=== PATIENT | male | born 1985 ===

== ENCOUNTER 2017-03-22 13:58 | Emergency (ER) | payer MEDICAID, OTHER ==
[2017-03-22] MEDS ORDERED: Albuterol-Ipratrop 3 mg / 0.5 (3 ml) UD ONE ×2 (14:08→18:33)
[2017-03-22] MEDS ORDERED: Sodium Chloride 0.9% 500 ML IV ONE (14:50)
[2017-03-22] MEDS ORDERED: Albuterol-Ipratrop 20 mcg/actuation (4 g) INH STA (14:50)
--- NOTE | 2017-03-22 14:56 | C.PDOC ---
History Of Present Illness <Carole Carter - Last Filed: 03/22/17 18:20> <Chester Lantigua - Last Filed: 03/22/17 21:23> 31-year-old male, PMHx includes Asthma, presents to the emergency department for evaluation of nasal congestion, runny nose and productive cough gradually worsen for the past few weeks. Pt reports, his morning, patient developed chest tightness and wheezing, did not improved with use of inhaler, resulting in him coming to ED for evaluation. Otherwise, pt denies fever, chills, headache, drooling, CP, palpitation, abd. pain, nausea/vomiting, back pain or any other active complaints. AT present time, pt appears comfortable, not in resp. distress, No other complaints at this time. (Carole Carter) History Per: Patient History/Exam Limitations: no limitations Onset/Duration Of Symptoms: Days Current Symptoms Are (Timing): Still Present <Carole Carter - Last Filed: 03/22/17 18:20> <Chester Lantigua - Last Filed: 03/22/17 21:23> Time Seen by Provider: 03/22/17 14:43 Chief Complaint (Nursing): Shortness Of Breath Past Medical History Reviewed: Historical Data, Nursing Documentation, Vital Signs - Medical History PMH: Asthma Family History: States: No Known Family Hx - Social History Hx Tobacco Use: Yes Hx Alcohol Use: No Hx Substance Use: Yes - Immunization History Hx Tetanus Toxoid Vaccination: No Hx Influenza Vaccination: No Hx Pneumococcal Vaccination: No <Carole Carter - Last Filed: 03/22/17 18:20> Vital Signs: Last Vital Signs Temp 98.1 F 03/22/17 17:50 Pulse 86 03/22/17 20:17 Resp 16 03/22/17 20:17 BP 100/55 L 03/22/17 20:17 Pulse Ox 90 L 03/22/17 20:17 Review Of Systems Constitutional: Positive for: Weakness (generalized). Negative for: Fever, Chills ENT: Positive for: Nose Congestion Respiratory: Positive for: Cough. Negative for: Shortness of Breath, Sputum Gastrointestinal: Negative for: Nausea, Vomiting, Abdominal Pain Musculoskeletal: Negative for: Back Pain Neurological: Negative for: Weakness, Numbness, Headache, Dizziness <Carole Carter - Last Filed: 03/22/17 18:20> Physical Exam - Physical Exam Appears: Well, Non-toxic, No Acute Distress, Other (speaking in full sentences) Skin: Normal Color, Warm, Dry, No Rash Head: Normacephalic Eye(s): bilateral: PERRL Nose: No Flaring, Discharge (B/L congestion with scant clear rhinorrhea ) Oral Mucosa: Moist, No Drooling Lips: Normal Appearing Throat: No Erythema, No Drooling Neck: Normal ROM, Supple Cardiovascular: Rhythm Regular, No Murmur, No JVD Respiratory: No Accessory Muscle Use, No Rales, No Rhonchi, Wheezing (diffuse B/ L, expiratory) Gastrointestinal/Abdominal: Soft, No Tenderness, No Distention, No Guarding Extremity: Normal ROM, No Pedal Edema, No Deformity Neurological/Psych: Oriented x3, Normal Speech <Carole Carter - Last Filed: 03/22/17 18:20> ED Course And Treatment - Laboratory Results Result Diagrams: 03/22/17 16:12 03/22/17 16:12 O2 Sat by Pulse Oximetry: 100 (RA) Pulse Ox Interpretation: Normal - Radiology CXR: Interpreted by Me, Viewed By Me CXR Interpretation: Yes: No Acute Disease Progress Note: PT OBS IN ED FOR 2 hrs, admits min improvement. Pt sitting in bed, eating dinner Non-toxic. not in resp. distress. PulsEOx remained inadequate on RA 88-89% and 100% on O2 via NC. Lungs: mild improvement in exp wheezing B/L, BS equal B/L. CXR review, normal study. Blood work review, no acute abnormalities. UDrug screem review (+) opioid, cannab. Case discussed with Dr. Lantigua. re-evbethany, anushao <Carole Carter - Last Filed: 03/22/17 18:20> - Laboratory Results Result Diagrams: 03/22/17 16:12 03/22/17 16:12 Pulse Ox Interpretation: Normal - Radiology CXR: Interpreted by Me Progress Note: no wheezing . feels much better and wants to go home Reevaluation Time: 21:23 Reassessment Condition: Improved <Chester Lantigua - Last Filed: 03/22/17 21:23> Disposition - Disposition Disposition Time: 19:01 <Carole Carter - Last Filed: 03/22/17 18:20> Counseled Patient/Family Regarding: Studies Performed, Diagnosis, Need For Followup, Rx Given <Chester Lantigua - Last Filed: 03/22/17 21:23> - Disposition Referrals: [facility] [Outside] [facility] [Outside] Disposition: HOME/ ROUTINE Condition: FAIR Additional Instructions: Please return if symptoms recur Prescriptions: Albuterol HFA [Ventolin HFA 90 mcg/actuation (8 g)] 2 puff IH [id number] #1 puff Azithromycin [Zithromax Tri-Sidney] 500 mg PO DAILY #3 tablet Prednisone [Deltasone] 20 mg PO DAILY #5 tablet Instructions: Asthma (ED) Forms: [facility] (Yakut) - Clinical Impression Clinical Impression: Acute asthma exacerbation - Scribe Statement The provider has reviewed the documentation as recorded by the Scribe (Timothy Blood) <Carole Carter - Last Filed: 03/22/17 18:20> <Chester Lantigua - Last Filed: 03/22/17 21:23> - Scribe Statement All medical record entries made by the Scribe were at my direction and personally dictated by me. I have reviewed the chart and agree that the record accurately reflects my personal performance of the history, physical exam, medical decision making, and the department course for this patient. I have also personally directed, reviewed, and agree with the discharge instructions and disposition. (Carole Carter) Physician Patient Turnover Patient Signed Over To: Chester Lantigua Handoff Comments: medication, re-eval, dispo <Carole Carter - Last Filed: 03/22/17 18:20>
--- NOTE | 2017-03-22 16:09 | RAD ---
HISTORY: SOB COMPARISON: None available. TECHNIQUE: Chest PA and lateral FINDINGS: LUNGS: Apical pleural thickening. No focal consolidation. Please note that chest x-ray has limited sensitivity for the detection of pulmonary masses. PLEURA: No significant pleural effusion identified. No definite pneumothorax . CARDIOVASCULAR: The cardiomediastinal silhouette appears within normal limits of size. OSSEOUS STRUCTURES: No acute osseous abnormality identified. VISUALIZED UPPER ABDOMEN: Unremarkable. OTHER FINDINGS: None. IMPRESSION: No acute findings identified.
[2017-03-22 16:22] LABS: BASO # 0.1 K/uL (0.0-0.2); BASO % 0.4 % (0.0-2.0); EOS # 0.6 K/uL (0.0-0.7); EOS % 4.5 % (0.0-4.0); HEMOGLOBIN 13.7 g/dL (12.0-18.0); LYMPH % 21.5 % (20.0-40.0); MEAN CELL VOLUME 92.8 fL (80.0-94.0); MEAN CORPUSCULAR HEMOGLOBIN 31.5 pg (27.0-31.0); MEAN CORPUSCULAR HGB CONC 33.9 g/dL (33.0-37.0); MONO # 0.8 K/uL (0.0-0.8); MONO % 5.7 % (0.0-10.0); NEUT # 9.4 K/uL (1.8-7.0); NEUT % 67.9 % (50.0-75.0); RBC 4.34 Mil/uL (4.40-5.90); WHITE BLOOD COUNT 13.8 K/uL (4.8-10.8)
[2017-03-22 16:46] LABS: BLOOD UREA NITROGEN 12 mg/dL (9-20); GFR AFRICAN-AMERICAN > 60; GFR NON-AFRICAN AMERICAN > 60
[2017-03-22 16:52] LABS: URINE BACTERIA RARE (<OCC); URINE BILIRUBIN NEGATIVE (NEGATIVE); URINE BLOOD NEGATIVE (NEGATIVE); URINE CLARITY Hazy (Clear); URINE COLOR Yellow (YELLOW); URINE GLUCOSE (UA) NORMAL (Normal); URINE LEUKOCYTE ESTERASE NEG Leu/uL (Negative); URINE NITRATE NEGATIVE (NEGATIVE); URINE PROTEIN NEGATIVE (NEGATIVE); URINE UROBILINOGEN NORMAL mg/dL (0.2-1.0)
[2017-03-22 17:00] LABS: BARBITURATES, UR NEGATIVE (NEGATIVE); BENZODIAZEPINES, UR NEGATIVE (NEGATIVE); PHENCYCLIDINE, UR NEGATIVE (NEGATIVE)
[2017-03-22] MEDS ORDERED: Magnesium Sulfate 1 gm in D5W 1 GM/100 ML BAG IVPB ONE ×2 (17:42→19:43)
[2017-03-22] MEDS: Magnesium Sulfate 1 gm in D5W 1 GM/100 ML BAG IVPB SCH ×2 (17:49→19:43)
[2017-03-22 17:53] LABS: OPIATES, UR POSITIVE (NEGATIVE)
[2017-03-22] MEDS ORDERED: Albuterol-Ipratrop 3 mg / 0.5 (3 ml) UD IH STA (17:53)
[2017-03-22 20:20] VITALS: RESP 16; O2SAT 90
[2017-03-22 21:39] VITALS: BP 129/75; PULSE 99; TEMP 98.4
== END 2017-03-22 21:43 | disposition home or self-care (01) ==
LOC: C.ER 13:58
DX: J45.901 Unspecified asthma with (acute) exacerbation (principal); Z87.891 Personal history of nicotine dependence
CPT/HCPCS: 71046; 80048; 81001; 85025; 87804; 96365; 96366; 96375; 99285; G0480; J2930; J3475; J7040

== ENCOUNTER 2017-08-07 21:56 | Inpatient (IN) | payer MEDICAID, OTHER ==
[2017-08-07] MEDS ORDERED: Albuterol-Ipratrop 3 mg / 0.5 (3 ml) UD ONE ×2 (22:15→23:19)
[2017-08-07] MEDS ORDERED: Albuterol 0.083% Inhal Sol (2.5 mg/3 mL) UD ONE (22:17)
[2017-08-07] MEDS ORDERED: Albuterol-Ipratrop 3 mg / 0.5 (3 ml) UD INH STA ×2 (22:22→23:17)
[2017-08-07] MEDS ORDERED: Albuterol 0.083% Inhal Sol (2.5 mg/3 mL) UD INH STA ×2 (22:22→22:39)
[2017-08-07] MEDS ORDERED: MethylPREDNISolone 40 mg Vial IVP STA (22:41)
--- NOTE | 2017-08-07 22:49 | C.PDOC ---
History Of Present Illness 32 y/o male with longstanding PMHx of asthma since childhood, presents to the ED with worsening SOB, chest tightness, and wheezing that began today. Patient admits he recently relapsed on heroin use and has been sniffing intranasally. Patient has prior hx of intubation for asthma. He is requesting to be evaluated for detox after medical treatment is provided. Otherwise no palpitations, recent fever, allergen exposure, cough, dizziness, weakness, or other associated symptoms. Time Seen by Provider: 08/07/17 22:30 Chief Complaint (Nursing): Respiratory Distress History Per: Patient History/Exam Limitations: no limitations Onset/Duration Of Symptoms: Hrs Current Symptoms Are (Timing): Still Present Initiating Event: Other (Heroin relapse) Past Medical History Reviewed: Historical Data, Nursing Documentation, Vital Signs Vital Signs: Last Vital Signs Temp 98.3 F 08/07/17 22:12 Pulse 118 H 08/08/17 01:41 Resp 20 08/08/17 03:01 BP 134/76 08/08/17 03:01 Pulse Ox 98 08/08/17 03:07 - Medical History PMH: Asthma Other PMH: Substance abuse Family History: States: No Known Family Hx - Social History Hx Tobacco Use: Yes Hx Alcohol Use: No Hx Substance Use: Yes - Immunization History Hx Tetanus Toxoid Vaccination: No Hx Influenza Vaccination: No Hx Pneumococcal Vaccination: No Review Of Systems Constitutional: Negative for: Fever, Chills, Weakness ENT: Negative for: Nose Congestion Cardiovascular: Positive for: Chest Pain (tightness). Negative for: Palpitations Respiratory: Positive for: Shortness of Breath, Wheezing. Negative for: Cough Neurological: Negative for: Dizziness Physical Exam - Physical Exam Appears: Non-toxic, In Acute Distress (mild respiratory distress) Skin: Normal Color, Warm, Dry Head: Atraumatic, Normacephalic Eye(s): bilateral: Normal Inspection, PERRL, EOMI Oral Mucosa: Moist Neck: Normal ROM, Supple Chest: Symmetrical, No Deformity, No Tenderness Cardiovascular: Rhythm Regular (with accelerated rate, HR is at 112 bpm), No Friction Rub, No Murmur, No Other (thrill) Respiratory: Accessory Muscle Use, No Rhonchi, Wheezing (diffuse bilateral wheezing), Other (prolonged expiratory phases, with decreased air movement) Gastrointestinal/Abdominal: Soft, No Tenderness, No Distention Extremity: Bilateral: Atraumatic (with no manifestation of IV drug abuse), No Pedal Edema, Normal Color And Temperature (with no edema, cluubing, or cyanosis) , Normal ROM Pulses: Left Radial: Normal, Right Radial: Normal Neurological/Psych: Oriented x3, Normal Speech (speaking in partial sentences), Normal Cranial Nerves, Other (No focal deficits) ED Course And Treatment - Laboratory Results Result Diagrams: 08/08/17 00:33 08/08/17 00:33 O2 Sat by Pulse Oximetry: 98 (RA) Pulse Ox Interpretation: Normal - Radiology CXR: Interpreted by Me, Viewed By Me CXR Interpretation: Yes: No Acute Disease Medical Decision Making Medical Decision Making: Initial Impression: Acute exacerbation of asthma, perhaps triggered by relapsed heroin use Plan: --Urine drug screen --Alcohol serum --CMP --CBC --UA --Chest X-Ray --Albuterol neb x2 --Duoneb x2 --Solu-Medrol 125 mg IVP --Peak Flow pre/post tx --Crisis team will evaluate Progress/Updates: CXR shows no active pulmonary disease. Labs reviewed, WBC elevated 12k. 3:02am After 4 nebs, patient has persistent wheezing. PulseOx is 92% on 4L of O2. Given patients prior history of intubations, will plan to admit the patient for medicine and have him evaluated for detox at a later time. 3:33am Case discussed with Dr. Galarza, who accepts the patient for admission. Disposition Counseled Patient/Family Regarding: Studies Performed, Diagnosis - Disposition Disposition: HOSPITALIZED Disposition Time: 03:33 Condition: IMPROVED Forms: [facility] (Tajik) - POA Present On Arrival: None - Clinical Impression Clinical Impression: Acute asthma exacerbation - Scribe Statement The provider has reviewed the documentation as recorded by the Scribe (Michaelle Marcos) Provider Attestation: All medical record entries made by the Scribe were at my direction and personally dictated by me. I have reviewed the chart and agree that the record accurately reflects my personal performance of the history, physical exam, medical decision making, and the department course for this patient. I have also personally directed, reviewed, and agree with the discharge instructions and disposition.
[2017-08-08 00:39] LABS: BASO # 0.1 K/uL (0.0-0.2); BASO % 0.5 % (0.0-2.0); EOS # 0.5 K/uL (0.0-0.7); EOS % 3.8 % (0.0-4.0); HEMOGLOBIN 15.3 g/dL (12.0-18.0); LYMPH # 2.6 K/uL (1.0-4.3); LYMPH % 20.5 % (20.0-40.0); MEAN CELL VOLUME 93.6 fL (80.0-94.0); MEAN CORPUSCULAR HGB CONC 33.2 g/dL (33.0-37.0); MONO # 0.9 K/uL (0.0-0.8); MONO % 6.8 % (0.0-10.0); NEUT # 8.6 K/uL (1.8-7.0); NEUT % 68.4 % (50.0-75.0); NRBC % 0.1 % (0.0-2.0); RBC 4.93 Mil/uL (4.40-5.90); RED CELL DISTRIBUTION WIDTH 13.1 % (11.5-14.5); WHITE BLOOD COUNT 12.6 K/uL (4.8-10.8)
[2017-08-08 00:50] LABS: ALB/GLOB RATIO 1.6 (1.0-2.1); ALBUMIN 4.7 g/dL (3.5-5.0); ALT/SGPT 30 U/L (21-72); AST/SGOT 22 U/L (17-59); BLOOD UREA NITROGEN 17 mg/dL (9-20); CALCIUM 9.6 mg/dl (8.6-10.4); GFR AFRICAN-AMERICAN > 60; GFR NON-AFRICAN AMERICAN > 60
[2017-08-08] MEDS ORDERED: Albuterol-Ipratrop 3 mg / 0.5 (3 ml) UD ONE (02:52)
[2017-08-08] MEDS ORDERED: Albuterol 0.083% Inhal Sol (2.5 mg/3 mL) UD INH STA (02:54)
[2017-08-08 03:17] LABS: ABG ALLEN TEST POS; ARTERIAL BLOOD GAS HEMOGLOBIN 14.1 g/dL (11.7-17.4); ARTERIAL BLOOD GAS O2 SAT 95.1 % (95-98); ARTERIAL BLOOD GAS PCO2 54 mm/Hg (35-45); ARTERIAL BLOOD GAS PH 7.35 (7.35-7.45); ARTERIAL BLOOD GAS PO2 67 mm/Hg (80-100); ARTERIAL BLOOD GAS TCO2 31.5 mmol/L (22-28)
[2017-08-08 03:47] LABS: BARBITURATES, UR NEGATIVE (NEGATIVE); BENZODIAZEPINES, UR NEGATIVE (NEGATIVE); PHENCYCLIDINE, UR NEGATIVE (NEGATIVE)
[2017-08-08 03:49] LABS: OPIATES, UR POSITIVE (NEGATIVE)
[2017-08-08] MEDS: MethylPREDNISolone 40 mg Vial IVP SCH ×4 (03:59→22:26)
[2017-08-08] MEDS: Albuterol-Ipratrop 3 mg / 0.5 (3 ml) UD INH SCH ×5 (05:15→20:38)
[2017-08-08] MEDS: Enoxaparin 40 mg Syringe SC SCH (09:25)
[2017-08-08] MEDS ORDERED: Fluticasone-Salmeterol 250-50mcg Diskus INH SCH (10:00)
--- NOTE | 2017-08-08 11:38 | RAD ---
HISTORY: Sepsis Patient COMPARISON: 03/22/2017. FINDINGS: LUNGS: The lungs are hyperinflated and there is peribronchial thickening with chronic changes in both lungs. No focal consolidation. PLEURA: No significant pleural effusion identified, no pneumothorax apparent. CARDIOVASCULAR: Normal. OSSEOUS STRUCTURES: No significant abnormalities. VISUALIZED UPPER ABDOMEN: Normal. OTHER FINDINGS: None. IMPRESSION: No active pulmonary disease. COPD.
--- NOTE | 2017-08-08 12:04 | PCM.PSYCH ---
Initial Psychiatric Evaluation - Initial Psychiatric Evaluation Type of Admission: Voluntary Legal Status: Capacity Chief Complaint (in patient's own words): "I use heroin" History of Present Illness and Precipitating Events: The patient is seen, chart reviewed and case discussed. Consultation was requested for his substance use. This is a 32-year-old male, single with 2 children in [place]. He works at [employer] part-time and lives with his aunt in [place]. The patient has relapsed on heroin about 2 weeks ago, but he first started when he was 17 years old. He uses 4-6 backs right now intranasally. He also uses marijuana. He had one detox in [place] and he came to [facility] 3 months ago. He denies alcohol and other drug use He is slightly depressed but denies suicidal ideation and no hallucinations or delusions elicited. Past psych history: He was diagnosed with depression and anxiety and later on bipolar disorder. However he doesn't report any manic symptoms. He used to take Depakote in the past Family psych history: Denies Medical history: Asthma, alopecia Current Medications: Active Medications Generic Name Dose Route Start Last Admin Trade Name Freq PRN Reason Stop Dose Admin Albuterol/Ipratropium 3 ml 08/08/17 04:00 08/08/17 07:37 Duoneb 3 Mg/0.5 Mg (3 Ml) Ud INH 3 ml RQ4 LOAN Administration Enoxaparin Sodium 40 mg 08/08/17 10:00 08/08/17 09:25 Lovenox SC Not Given DAILY LOAN Famotidine 20 mg 08/08/17 10:00 08/08/17 09:25 Pepcid PO 20 mg DAILY LOAN Administration Ceftriaxone Sodium 1 gm/ 100 mls @ 100 mls/hr 08/08/17 10:00 08/08/17 10:35 Sodium Chloride IVPB 100 mls/hr DAILY LOAN Administration Protocol Methylprednisolone 60 mg 08/08/17 03:45 08/08/17 09:26 Solu-Medrol IVP 60 mg Q6H LOAN Administration Montelukast Sodium 4 mg 08/08/17 10:00 08/08/17 09:45 Singulair PO 4 mg DAILY LOAN Administration Pneumococcal Polyvalent Vaccine 0.5 ml 08/10/17 10:00 Pneumovax 23 Vaccine IM 08/10/17 10:01 .ONCE ONE Fluticasone/Salmeterol 1 puff 08/09/17 10:00 Advair Diskus 250/50 INH DAILY LOAN Tiotropium [place] 18 mcg 08/08/17 11:00 Spiriva INH RQ24 LOAN Past Psychiatric History - Past Psychiatric History Previous Treatment History: Inpatient Pertinent Medical Hx (Current Medical&Sleep Prob, Allergies): Allergies Allergy/AdvReac Type Severity Reaction Status Date / Time No Known Allergies Allergy Verified 08/07/17 22:16 Albuterol HFA [Ventolin HFA 90 mcg/actuation (8 g)] 2 puff IH [id number] 03/22/17 Fluticasone/Salmeterol [Advair 250-50 Diskus] 1 puff IH DAILY 08/07/17 Montelukast Sodium [Singulair] 4 mg PO DAILY 08/07/17 Tiotropium [place] Inhaler [Spiriva Inhalation Handihaler Device] 1 inhaler INH DAILY 08/07/17 Review of Systems - Neurological Neurological: UNREMARKABLE - Psychiatric Psychiatric: Abnormal Sleep Pattern, Anxiety. absent: Hallucinations, Homicidal Ideation, Hopelessness, Suicidal Ideation Mental Status Examination - Personal Presentation Personal Presentation: Looks stated age - Affect Affect: Constricted - Motor Activity Motor Activity: Calm - Reliability in Providing Information Reliability in Providing Information: Good - Speech Speech: Organized - Mood Mood: Depressed (mild), Anxious - Formal Thought Process Formal Thought Process: No Impairment - Cognitive Functions Orientation: Person, Place, Situation, Time Sensorium: Alert Attention/Concentration: Attentive Estimate of Intelligence: Average Judgement: Intact, as evidence by: Insight regarding need for hospitalization Memory: Recent intact, as evidence by: Ability to recall events of the day, Remote intact, as evidenced by: Ability to recall historical events - Risk Risk: Withdrawal, Diminished functioning - Strength & Assets Inventory Strength & Assets Inventory: Family support, Cooperative - Limitations Limitations: Other DSM 5 DX - DSM 5 DSM 5 Diagnosis: Opioid withdrawal Opioid use disorder, severe Cannabis use disorder, moderate Depressive disorder, unspecified Rule out bipolar disorder, by history - Recommended/Plan of Treatment Treatment Recommendations and Plan of Treatment: Taper with methadone Gabapentin for augmentation if needed Seroquel for insomnia, mood symptoms As needed medications All risks, benefits and alternatives of the meds discussed, and the pt agreed and understood. Supportive therapy and psychoeducation NM for abstinence Encourage MAT Refer to rehab or IOP, and self-help groups 34 min
--- NOTE | 2017-08-08 12:15 | CP.PCM.HP ---
History of Present Illness - History of Present Illness History of Present Illness: COMPREHENSIVE HISTORY & PHYSICAL EXAM Patient admitted from [facility] emergency room with acute wheezing HPI Patient has a history of asthma with exacerbation in the past requiring intubation. Patient was sniffing heroine and subsequently got short of breath with increased wheezing patient was treated in the ER with multiple bronchodilators and steroid with not much improvement. Patient is now admitted for further treatment and detox PAST HIST. PERSONAL HIST: Smoking. Yes Alcohol. N Allergy N Travel_ - . FAMILY HIST : ROS : Constitutional: Negative for weight change, chills, night sweats, fatigue and usage of assist device. Eyes: Negative for redness, swelling, itching, discharge, vision changes, blurry vision, double vision, glaucoma, cataracts, Ears: Negative for hearing loss, ringing, , tinnitus, vertigo Nose: Negative for rhinorrhea, stuffiness, sniffing, itching, postnasal drip, discoloration, nasal congestion and epistaxis. Throat: Negative for throat clearing, sore throat, hoarseness, difficulty swallowing and difficulty speaking. Respiratory: Coughing with white expectoration wheezing Cardiovascular: Negative for chest pain, palpitations, orthopnea, PND, Edema of legs, leg cramps, angina, claudication, , irregular heartbeat, Neurology: Negative for irritability, muscle weakness, numbness and tingling, seizures, tremors, migraines, slurred speech, syncope, memory loss, mood changes , recurrent headaches Gastrointestinal: Negative for difficulty swallowing, diarrhea, constipation, black stools, rectal bleeding, nausea, flatulence, reflux, poor appetite, changes in bowel habits, abdominal pain Genitourinary: Negative for frequent urination, hematuria, discharge, incontinence, urinary retention, frequent UTI, Psychiatric: Negative for depression, anxiety/panic, suicidal tendencies, Musculoskeletal: Negative for swollen joints, back pain, , neck pain, morning stiffness of joints, . Skin: Negative for rash, ulcers, itching, dry skin and pigmented lesions. P/E: Constitutional: Appears stated age and in no apparent distress. Head: Normocephalic. Ears: External ear canals patent without inflammation. Tympanic membranes intact with normal light reflex and landmark. Eyes: Pupils are central, bilaterally equal, symmetrical and reacts to light with normal movements and no icterus or pallor. Nose: External nares are patent. Mucosa is pink Mouth-Throat: Good general appearance and condition. No post-pharyngeal/oropharyngeal erythema and tonsillar hypertrophy. Good dental hygiene. Neck-Lymphatic: Neck is supple with normal ROM, no thyromegaly, lymph nodes or masses. JVD is normal with no carotid bruit. Lungs: Bilateral inspiratory and expiratory wheezing Cardiovascular: S1 and S2 are normal with no murmurs, gallops and rub. GI Exam: No hepatomegaly. Abdomen is soft and non-tender. No Organomegaly , masses or hernias are evident and bowel sounds are normal and active. Neurology: Higher function and all cranial nerves intact, with no gross motor or sensory deficit. Superficial and deep reflexes are normal with downwards planters. No cerebellar deficit with normal gait. Musculoskeletal: No tender spots with normal curvature of the spine with no swelling or restricted ROM of the small and large joints. Extremities: Homans sign absent. Intact pulses with no pitting edema, calf tenderness or skin color changes. Skin: No rash, eruptions or abnormal skin pigmentation LAB/RADIOLOGY: ASSESMENT : Acute exacerbation of asthma, respiratory infection. Substance abuse PLAN: See orders Present on Admission - Present on Admission Any Indicators Present on Admission: No Past Patient History - Past Medical History & Family History Past Medical History?: Yes - Past Social History Smoking Status: Current Some Days Smoker - CARDIAC Hx Cardiac Disorders: No Hx Hypertension: No - PULMONARY Hx Asthma: Yes - NEUROLOGICAL HX Cerebrovascular Accident: No Hx Seizures: No - HEENT Hx HEENT Problems: No - RENAL Hx Chronic Kidney Disease: No - ENDOCRINE/METABOLIC Hx Endocrine Disorders: No - HEMATOLOGICAL/ONCOLOGICAL Hx Cancer: No Hx Human Immunodeficiency Virus (HIV): No - INTEGUMENTARY Hx Dermatological Problems: No - MUSCULOSKELETAL/RHEUMATOLOGICAL Hx Musculoskeletal Disorders: No Hx Falls: No - GASTROINTESTINAL Hx Gastrointestinal Disorders: No - GENITOURINARY/GYNECOLOGICAL Hx Genitourinary Disorders: No Hx Sexually Transmitted Disorders: No - PSYCHIATRIC Hx Substance Use: Yes (heroin/marijuana) - SURGICAL HISTORY Hx Surgeries: Yes Other/Comment: hernia repair >10 years ago as per patient - ANESTHESIA Hx Anesthesia: Yes Hx Anesthesia Reactions: No Hx Malignant Hyperthermia: No Has any member of the family had a problem w/ anesthesia?: No Meds Allergies/Adverse Reactions: Allergies Allergy/AdvReac Type Severity Reaction Status Date / Time No Known Allergies Allergy Verified 08/07/17 22:16 Results - Vital Signs Recent Vital Signs: Last Vital Signs Temp 98.1 F 08/08/17 08:23 Pulse 89 08/08/17 08:23 Resp 20 08/08/17 08:23 BP 114/72 08/08/17 08:23 Pulse Ox 94 L 08/08/17 08:23 - Labs Result Diagrams: 08/08/17 00:33 08/08/17 00:33 Labs: Laboratory Results - last 24 hr 08/08/17 08/08/17 08/08/17 00:33 00:33 03:10 WBC 12.6 H RBC 4.93 Hgb 15.3 Hct 46.1 MCV 93.6 MCH 31.0 MCHC 33.2 RDW 13.1 Plt Count 512 H D MPV 9.0 Neut % (Auto) 68.4 Lymph % (Auto) 20.5 [place] % (Auto) 6.8 Eos % (Auto) 3.8 Baso % (Auto) 0.5 Neut # (Auto) 8.6 H Lymph # (Auto) 2.6 [place] # (Auto) 0.9 H Eos # (Auto) 0.5 Baso # (Auto) 0.1 Puncture Site Rr pCO2 54 H pO2 67 L HCO3 27.0 ABG pH 7.35 ABG Total CO2 31.5 H ABG O2 Saturation 95.1 ABG Base Excess 2.9 ABG Hemoglobin 14.1 ABG Carboxyhemoglobin 3.0 H POC ABG HHb (Measured) 4.7 ABG Methemoglobin 1.6 Jai Test Pos A-a O2 Difference 94.0 Respiratory Index 1.4 Hgb O2 Saturation 90.7 L Liter Flow 3.0 Vent Mode Nc FiO2 32.0 Sodium 143 Potassium 4.0 Chloride 98 Carbon Dioxide 28 Anion Gap 20 BUN 17 Creatinine 0.8 Est GFR ( Amer) > 60 Est GFR (Non-Af Amer) > 60 Random Glucose 104 Calcium 9.6 Total Bilirubin 1.2 AST 22 ALT 30 Alkaline Phosphatase 92 Total Protein 7.7 Albumin 4.7 Globulin 3.0 Albumin/Globulin Ratio 1.6 Urine Opiates Screen Urine Methadone Screen Ur Barbiturates Screen Ur Phencyclidine Scrn Ur Amphetamines Screen U Benzodiazepines Scrn U Oth Cocaine Metabols U Cannabinoids Screen Alcohol, Quantitative < 10 08/08/17 03:27 WBC RBC Hgb Hct MCV MCH MCHC RDW Plt Count MPV Neut % (Auto) Lymph % (Auto) [place] % (Auto) Eos % (Auto) Baso % (Auto) Neut # (Auto) Lymph # (Auto) [place] # (Auto) Eos # (Auto) Baso # (Auto) Puncture Site pCO2 pO2 HCO3 ABG pH ABG Total CO2 ABG O2 Saturation ABG Base Excess ABG Hemoglobin ABG Carboxyhemoglobin POC ABG HHb (Measured) ABG Methemoglobin Jai Test A-a O2 Difference Respiratory Index Hgb O2 Saturation Liter Flow Vent Mode FiO2 Sodium Potassium Chloride Carbon Dioxide Anion Gap BUN Creatinine Est GFR ( Amer) Est GFR (Non-Af Amer) Random Glucose Calcium Total Bilirubin AST ALT Alkaline Phosphatase Total Protein Albumin Globulin Albumin/Globulin Ratio Urine Opiates Screen Positive H Urine Methadone Screen Negative Ur Barbiturates Screen Negative Ur Phencyclidine Scrn Negative Ur Amphetamines Screen Negative U Benzodiazepines Scrn Negative U Oth Cocaine Metabols Negative U Cannabinoids Screen Positive H Alcohol, Quantitative
[2017-08-08] MEDS: Tiotropium 18 mcg Cap For Inhalation INH SCH (13:08)
[2017-08-09] MEDS: Albuterol-Ipratrop 3 mg / 0.5 (3 ml) UD INH SCH ×7 (00:49→23:39)
[2017-08-09] MEDS: MethylPREDNISolone 40 mg Vial IVP SCH ×4 (03:01→21:18)
[2017-08-09] MEDS: Tiotropium 18 mcg Cap For Inhalation INH SCH (08:15)
[2017-08-09] MEDS: Enoxaparin 40 mg Syringe SC SCH (09:10)
--- NOTE | 2017-08-09 14:00 | CP.PCM.PN ---
Subjective - Date & Time of Evaluation Date of Evaluation: 08/09/17 Time of Evaluation: 13:59 - Subjective Subjective: CHIEF COMPLAINTS TODAY : patient still coughing with whitish to yellowish expectoration associated with wheezing ROS. HEENT : N. Resp : No chemoptysis Cardio : No anginal CP, PND, orthopnea, palpitation GI : No abd.pain, n/v ,diarrhea or GI bleeding . COTTON PULLER : No headache, vertigo, focal deficit. Musculoskel : No joint swelling , Derm : No rash Psych : Normal affect. Ext : No swelling ,calf pain PE. Pt. is alert awake in no distress. V.S As noted in the chart Head ,ear nose,throat and eyes : Normal. Neck : Supple with normal carotids. Lungs: bilateral basal expiratory wheezing Heart : S1 & S2 normal with S4. No murmur. Abd : Soft non tender with normal bowel sounds. Neuro : Moves all ext. with no localized deficit. Ext : No edema with intact pulses.Non tender calves Derm : No rashes or decubitus ulcer. LABS/RADIOLOGY: ASSESSMENT/PLAN : continue IV steroids, nebulizer, IV antibiotics. Objective - Vital Signs/Intake and Output Vital Signs (last 24 hours): Temp Pulse Resp BP Pulse Ox 98.3 F 80 20 122/56 L 95 08/09/17 07:06 08/09/17 07:06 08/09/17 07:06 08/09/17 07:06 08/09/17 07:06 Intake and Output: 08/09/17 08/09/17 11:59 23:59 Intake Total 480 Balance 480 - Medications Medications: Current Medications Albuterol/Ipratropium (Duoneb 3 Mg/0.5 Mg (3 Ml) Ud) 3 ml INH RQ4 [facility] Last Admin: 08/09/17 11:56 Dose: Not Given Enoxaparin Sodium (Lovenox) 40 mg SC DAILY [facility] Last Admin: 08/09/17 09:10 Dose: Not Given Famotidine (Pepcid) 20 mg PO DAILY [facility] Last Admin: 08/09/17 09:12 Dose: 20 mg Ceftriaxone Sodium 1 gm/ (Sodium Chloride) 100 mls @ 100 mls/hr IVPB DAILY [facility] PRN Reason: Protocol Last Admin: 08/09/17 09:12 Dose: 100 mls/hr Methadone HCl (Methadone) 5 mg PO ONCE ONE Stop: 08/10/17 09:01 Methylprednisolone (Solu-Medrol) 60 mg IVP Q6H [facility] Last Admin: 08/09/17 08:45 Dose: 60 mg Montelukast Sodium (Singulair) 4 mg PO DAILY [facility] Pneumococcal Polyvalent Vaccine (Pneumovax 23 Vaccine) 0.5 ml IM .ONCE ONE Stop: 08/10/17 10:01 Quetiapine Fumarate (Seroquel) 50 mg PO HS [facility] Last Admin: 08/08/17 22:25 Dose: 50 mg Fluticasone/Salmeterol (Advair Diskus 250/50) 1 puff INH DAILY [facility] Tiotropium [place] (Spiriva) 18 mcg INH RQ24 [facility] Last Admin: 08/09/17 08:15 Dose: Not Given - Labs Labs: 08/08/17 00:33 08/08/17 00:33
[2017-08-09] MEDS ORDERED: Multivitamin (MVI) 10 ML, Thiamine 100 MG, Folic Acid 1 MG in Sodium Chloride 0.9% 1,00... IV ONE (16:30)
[2017-08-09] MEDS: DiphenhydrAMINE 50 mg/ml Inj IVP PRN (17:42)
[2017-08-09] MEDS: Fluticasone-Salmeterol 250-50mcg Diskus INH SCH ×2 (19:33→20:49)
[2017-08-10] MEDS: Albuterol-Ipratrop 3 mg / 0.5 (3 ml) UD INH SCH ×4 (03:10→20:00)
[2017-08-10] MEDS: MethylPREDNISolone 40 mg Vial IVP SCH ×4 (03:11→21:23)
[2017-08-10] MEDS: Tiotropium 18 mcg Cap For Inhalation INH SCH (08:27)
[2017-08-10] MEDS: Fluticasone-Salmeterol 250-50mcg Diskus INH SCH ×2 (08:28→20:02)
[2017-08-10] MEDS: Enoxaparin 40 mg Syringe SC SCH (09:03)
[2017-08-10] MEDS ORDERED: Pneumococcal 23-Valent Vaccine IM ONE (10:00)
--- NOTE | 2017-08-10 14:17 | CP.PCM.PN ---
Subjective - Date & Time of Evaluation Date of Evaluation: 08/10/17 Time of Evaluation: 14:17 - Subjective Subjective: CHIEF COMPLAINTS TODAY : patient still coughing with whitish to yellowish expectoration associated with wheezing ROS. HEENT : N. Resp : No chemoptysis Cardio : No anginal CP, PND, orthopnea, palpitation GI : No abd.pain, n/v ,diarrhea or GI bleeding . VASCULAR TECH : No headache, vertigo, focal deficit. Musculoskel : No joint swelling , Derm : No rash Psych : Normal affect. Ext : No swelling ,calf pain PE. Pt. is alert awake in no distress. V.S As noted in the chart Head ,ear nose,throat and eyes : Normal. Neck : Supple with normal carotids. Lungs: bilateral basal expiratory wheezing Heart : S1 & S2 normal with S4. No murmur. Abd : Soft non tender with normal bowel sounds. Neuro : Moves all ext. with no localized deficit. Ext : No edema with intact pulses.Non tender calves Derm : No rashes or decubitus ulcer. LABS/RADIOLOGY: ASSESSMENT/PLAN : continue IV steroids, nebulizer, IV antibiotics. Objective - Vital Signs/Intake and Output Vital Signs (last 24 hours): Temp Pulse Resp BP Pulse Ox 98 F 86 20 114/68 96 08/09/17 23:20 08/09/17 23:20 08/09/17 23:20 08/09/17 23:20 08/09/17 23:20 Intake and Output: 08/10/17 08/10/17 11:59 23:59 Intake Total 940 Balance 940 - Medications Medications: Current Medications Albuterol/Ipratropium (Duoneb 3 Mg/0.5 Mg (3 Ml) Ud) 3 ml INH RQ4 [facility] Last Admin: 08/10/17 03:10 Dose: Not Given Diphenhydramine HCl (Benadryl) 25 mg IVP Q6H PRN PRN Reason: Itching / Pruritus Last Admin: 08/09/17 17:42 Dose: 25 mg Enoxaparin Sodium (Lovenox) 40 mg SC DAILY [facility] Last Admin: 08/10/17 09:03 Dose: Not Given Famotidine (Pepcid) 20 mg PO DAILY [facility] Last Admin: 08/10/17 09:03 Dose: 20 mg Ceftriaxone Sodium 1 gm/ (Sodium Chloride) 100 mls @ 100 mls/hr IVPB DAILY [facility] PRN Reason: Protocol Last Admin: 08/10/17 09:36 Dose: 100 mls/hr Methylprednisolone (Solu-Medrol) 60 mg IVP Q6H [facility] Last Admin: 08/10/17 09:03 Dose: 60 mg Montelukast Sodium (Singulair) 10 mg PO DAILY@1800 [facility] Quetiapine Fumarate (Seroquel) 50 mg PO HS [facility] Last Admin: 08/09/17 21:18 Dose: 50 mg Fluticasone/Salmeterol (Advair Diskus 250/50) 1 puff INH RQ12 [facility] Last Admin: 08/09/17 20:49 Dose: 1 puff Tiotropium [place] (Spiriva) 18 mcg INH RQ24 [facility] Last Admin: 08/09/17 08:15 Dose: Not Given - Labs Labs: 08/08/17 00:33 08/08/17 00:33
[2017-08-11] MEDS: Albuterol-Ipratrop 3 mg / 0.5 (3 ml) UD INH SCH ×6 (00:04→20:00)
[2017-08-11] MEDS: MethylPREDNISolone 40 mg Vial IVP SCH ×5 (03:08→22:02)
[2017-08-11] MEDS: Tiotropium 18 mcg Cap For Inhalation INH SCH (07:45)
[2017-08-11] MEDS: Fluticasone-Salmeterol 250-50mcg Diskus INH SCH ×2 (07:45→20:00)
[2017-08-11 08:39] VITALS: RESP 20
[2017-08-11] MEDS: Enoxaparin 40 mg Syringe SC SCH (10:33)
--- NOTE | 2017-08-11 15:19 | CP.PCM.PN ---
Subjective - Date & Time of Evaluation Date of Evaluation: 08/11/17 Time of Evaluation: 15:19 - Subjective Subjective: CHIEF COMPLAINTS TODAY : patient still coughing with whitish to yellowish expectoration associated with wheezing ROS. HEENT : N. Resp : No chemoptysis Cardio : No anginal CP, PND, orthopnea, palpitation GI : No abd.pain, n/v ,diarrhea or GI bleeding . TIMBER CUTTER : No headache, vertigo, focal deficit. Musculoskel : No joint swelling , Derm : No rash Psych : Normal affect. Ext : No swelling ,calf pain PE. Pt. is alert awake in no distress. V.S As noted in the chart Head ,ear nose,throat and eyes : Normal. Neck : Supple with normal carotids. Lungs: bilateral basal expiratory wheezing Heart : S1 & S2 normal with S4. No murmur. Abd : Soft non tender with normal bowel sounds. Neuro : Moves all ext. with no localized deficit. Ext : No edema with intact pulses.Non tender calves Derm : No rashes or decubitus ulcer. LABS/RADIOLOGY: ASSESSMENT/PLAN : taper IV steroids, nebulizer, IV antibiotics. Objective - Vital Signs/Intake and Output Vital Signs (last 24 hours): Temp Pulse Resp BP Pulse Ox 98.7 F 81 20 118/68 98 08/11/17 08:39 08/11/17 08:39 08/11/17 08:39 08/11/17 08:39 08/11/17 08:39 Intake and Output: 08/11/17 08/11/17 11:59 23:59 Intake Total 240 580 Balance 240 580 - Medications Medications: Current Medications Albuterol/Ipratropium (Duoneb 3 Mg/0.5 Mg (3 Ml) Ud) 3 ml INH RQ4 [facility] Last Admin: 08/11/17 13:30 Dose: 3 ml Diphenhydramine HCl (Benadryl) 25 mg IVP Q6H PRN PRN Reason: Itching / Pruritus Last Admin: 08/09/17 17:42 Dose: 25 mg Enoxaparin Sodium (Lovenox) 40 mg SC DAILY [facility] Last Admin: 08/11/17 10:33 Dose: Not Given Famotidine (Pepcid) 20 mg PO DAILY [facility] Last Admin: 08/11/17 10:44 Dose: 20 mg Ceftriaxone Sodium 1 gm/ (Sodium Chloride) 100 mls @ 100 mls/hr IVPB DAILY [facility] PRN Reason: Protocol Last Admin: 08/11/17 10:45 Dose: 100 mls/hr Methylprednisolone (Solu-Medrol) 60 mg IVP Q6H [facility] Last Admin: 08/11/17 14:52 Dose: 60 mg Montelukast Sodium (Singulair) 10 mg PO DAILY@1800 [facility] Last Admin: 08/10/17 17:26 Dose: 10 mg Quetiapine Fumarate (Seroquel) 50 mg PO HS [facility] Last Admin: 08/10/17 21:23 Dose: 50 mg Fluticasone/Salmeterol (Advair Diskus 250/50) 1 puff INH RQ12 [facility] Last Admin: 08/11/17 07:45 Dose: 1 puff Tiotropium [place] (Spiriva) 18 mcg INH RQ24 [facility] Last Admin: 08/11/17 07:45 Dose: 18 mcg - Labs Labs: 08/08/17 00:33 08/08/17 00:33
[2017-08-11] MEDS: DiphenhydrAMINE 50 mg/ml Inj IVP PRN (19:34)
[2017-08-12] MEDS: Albuterol-Ipratrop 3 mg / 0.5 (3 ml) UD INH SCH ×5 (00:05→15:42)
[2017-08-12] MEDS: Fluticasone-Salmeterol 250-50mcg Diskus INH SCH (07:43)
[2017-08-12] MEDS: Tiotropium 18 mcg Cap For Inhalation INH SCH (07:43)
[2017-08-12 07:48] VITALS: BP 123/80; TEMP 98.1; O2SAT 97
[2017-08-12] MEDS: MethylPREDNISolone 40 mg Vial IVP SCH (09:11)
[2017-08-12] MEDS: Enoxaparin 40 mg Syringe SC SCH (09:15)
[2017-08-12 13:18] VITALS: PULSE 88
--- NOTE | 2017-08-12 13:41 | CP.PCM.DIS ---
Provider - Provider Date of Admission: 08/08/17 03:33 Attending physician: Ramu Galarza MD Time Spent in preparation of Discharge (in minutes): 20 Hospital Course - Lab Results Lab Results: Micro Results 08/08/17 04:55 Blood-Venous Blood Culture - Preliminary NO GROWTH AFTER 4 DAYS 08/08/17 04:55 Blood-Venous Blood Culture - Preliminary NO GROWTH AFTER 4 DAYS Most Recent Lab Values WBC 12.6 K/uL (4.8-10.8) H 08/08/17 00:33 RBC 4.93 Mil/uL (4.40-5.90) 08/08/17 00:33 Hgb 15.3 g/dL (12.0-18.0) 08/08/17 00:33 Hct 46.1 % (35.0-51.0) 08/08/17 00:33 MCV 93.6 fL (80.0-94.0) 08/08/17 00:33 MCH 31.0 pg (27.0-31.0) 08/08/17 00:33 MCHC 33.2 g/dL (33.0-37.0) 08/08/17 00:33 RDW 13.1 % (11.5-14.5) 08/08/17 00:33 Plt Count 512 K/uL (130-400) H D 08/08/17 00:33 MPV 9.0 fL (7.2-11.7) 08/08/17 00:33 Neut % (Auto) 68.4 % (50.0-75.0) 08/08/17 00:33 Lymph % (Auto) 20.5 % (20.0-40.0) 08/08/17 00:33 Evans % (Auto) 6.8 % (0.0-10.0) 08/08/17 00:33 Eos % (Auto) 3.8 % (0.0-4.0) 08/08/17 00:33 Baso % (Auto) 0.5 % (0.0-2.0) 08/08/17 00:33 Neut # (Auto) 8.6 K/uL (1.8-7.0) H 08/08/17 00:33 Lymph # (Auto) 2.6 K/uL (1.0-4.3) 08/08/17 00:33 Evans # (Auto) 0.9 K/uL (0.0-0.8) H 08/08/17 00:33 Eos # (Auto) 0.5 K/uL (0.0-0.7) 08/08/17 00:33 Baso # (Auto) 0.1 K/uL (0.0-0.2) 08/08/17 00:33 Puncture Site Rr 08/08/17 03:10 pCO2 54 mm/Hg (35-45) H 08/08/17 03:10 pO2 67 mm/Hg (80-100) L 08/08/17 03:10 HCO3 27.0 mmol/L (21-28) 08/08/17 03:10 ABG pH 7.35 (7.35-7.45) 08/08/17 03:10 ABG Total CO2 31.5 mmol/L (22-28) H 08/08/17 03:10 ABG O2 Saturation 95.1 % (95-98) 08/08/17 03:10 ABG Base Excess 2.9 mmol/L (-2.0-3.0) 08/08/17 03:10 ABG Hemoglobin 14.1 g/dL (11.7-17.4) 08/08/17 03:10 ABG Carboxyhemoglobin 3.0 % (0.5-1.5) H 08/08/17 03:10 POC ABG HHb (Measured) 4.7 % (0.0-5.0) 08/08/17 03:10 ABG Methemoglobin 1.6 % (0.0-3.0) 08/08/17 03:10 Jai Test Pos 08/08/17 03:10 A-a O2 Difference 94.0 mm/Hg 08/08/17 03:10 Respiratory Index 1.4 08/08/17 03:10 Hgb O2 Saturation 90.7 % (95.0-98.0) L 08/08/17 03:10 Liter Flow 3.0 08/08/17 03:10 Vent Mode Nc 08/08/17 03:10 FiO2 32.0 % 08/08/17 03:10 Sodium 143 mmol/L (132-148) 08/08/17 00:33 Potassium 4.0 mmol/L (3.6-5.2) 08/08/17 00:33 Chloride 98 mmol/L (98-107) 08/08/17 00:33 Carbon Dioxide 28 mmol/L (22-30) 08/08/17 00:33 Anion Gap 20 (10-20) 08/08/17 00:33 BUN 17 mg/dL (9-20) 08/08/17 00:33 Creatinine 0.8 mg/dL (0.8-1.5) 08/08/17 00:33 Est GFR ( Amer) > 60 08/08/17 00:33 Est GFR (Non-Af Amer) > 60 08/08/17 00:33 POC Glucose (mg/dL) 108 mg/dL (65-110) 08/09/17 16:16 Random Glucose 104 mg/dL (75-110) 08/08/17 00:33 Calcium 9.6 mg/dl (8.6-10.4) 08/08/17 00:33 Total Bilirubin 1.2 mg/dL (0.2-1.3) 08/08/17 00:33 AST 22 U/L (17-59) 08/08/17 00:33 ALT 30 U/L (21-72) 08/08/17 00:33 Alkaline Phosphatase 92 U/L (38-126) 08/08/17 00:33 Total Protein 7.7 g/dL (6.3-8.3) 08/08/17 00:33 Albumin 4.7 g/dL (3.5-5.0) 08/08/17 00:33 Globulin 3.0 gm/dL (2.2-3.9) 08/08/17 00:33 Albumin/Globulin Ratio 1.6 (1.0-2.1) 08/08/17 00:33 Urine Opiates Screen Positive (NEGATIVE) H 08/08/17 03:27 Urine Methadone Screen Negative (NEGATIVE) 08/08/17 03:27 Ur Barbiturates Screen Negative (NEGATIVE) 08/08/17 03:27 Ur Phencyclidine Scrn Negative (NEGATIVE) 08/08/17 03:27 Ur Amphetamines Screen Negative (NEGATIVE) 08/08/17 03:27 U Benzodiazepines Scrn Negative (NEGATIVE) 08/08/17 03:27 U Oth Cocaine Metabols Negative (NEGATIVE) 08/08/17 03:27 U Cannabinoids Screen Positive (NEGATIVE) H 08/08/17 03:27 Alcohol, Quantitative < 10 mg/dl (0-10) 08/08/17 00:33 - Hospital Course Hospital Course: Patient has a history of asthma with exacerbation in the past requiring intubation. Patient was sniffing heroine and subsequently got short of breath with increased wheezing patient was treated in the ER with multiple bronchodilators and steroid with not much improvement. Patient is now admitted for further treatment and detox Patient was given IV Solu-Medrol nebulizer [id number] and IV antibiotics. Patient improved on about therapy. Steroids were gradually tapered off. On the day of admission patient had no wheezing and no symptoms. Patient is discharged on no antibiotics, Medrol pack and inhaler. Patient was counseled to avoid illicit drugs. Discharge Plan - Discharge Medications Prescriptions: predniSONE [Prednisone] 10 mg PO DAILY #20 tab Quetiapine Fumarate [Seroquel] 50 mg PO HS #30 tablet Montelukast Sodium [Singulair] 4 mg PO DAILY #30 ctb Albuterol HFA [Ventolin HFA 90 mcg/actuation (8 g)] 1 puff IH QID PRN #1 inhaler PRN Reason: Wheezing - Follow Up Plan Condition: IMPROVED Disposition: HOME/ ROUTINE
== END 2017-08-12 17:49 | disposition home or self-care (01) | DRG 96 ==
LOC: C.ER 21:56 → C.3T 08-08 03:33
PROVIDERS: ADMIT Internal Medicine Cardiovascular Disease; ATTEND Internal Medicine Cardiovascular Disease
DX: J45.901 Unspecified asthma with (acute) exacerbation (principal); F11.23 Opioid dependence with withdrawal; F12.10 Cannabis abuse, uncomplicated; F17.200 Nicotine dependence, unspecified, uncomplicated

== ENCOUNTER → 2017-09-14 10:19 | Emergency (ER) | payer MEDICAID ==
[~2017-09-14 10:19] MED LIST: Albuterol 0.083% Inhal Sol (2.5 mg/3 mL) UD ONE; Albuterol-Ipratrop 3 mg / 0.5 (3 ml) UD ONE
== END | disposition left against medical advice (07) ==
LOC: C.ER 10:19
DX: Z02.89 Encounter for other administrative examinations (principal)

== ENCOUNTER 2017-09-14 18:25 | Inpatient (IN) | payer MEDICAID ==
[2017-09-14] MEDS ORDERED: Albuterol 0.083% Inhal Sol (2.5 mg/3 mL) UD IH STA (19:05)
[2017-09-14] MEDS ORDERED: Albuterol-Ipratrop 3 mg / 0.5 (3 ml) UD IH STA (19:05)
--- NOTE | 2017-09-14 19:11 | C.PDOC ---
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 Patient has a Hx of asthma and has been intubated in the past, currently he complains of nasal congestion and chest tightness with wheezing. Denies fever or chills. Time Seen by Provider: 09/14/17 18:40 Chief Complaint (Nursing): Substance Abuse History Per: Patient History/Exam Limitations: no limitations Onset/Duration Of Symptoms: Hrs Current Symptoms Are (Timing): Still Present Suicide/Self Injury Attempted (Context): None Modifying Factor(s): Other (Heroin) Associated Symptoms: denies: Depression, Suicidal Thoughts Involuntary Hold By: None Recent travel outside of the [place]: No Past Medical History Reviewed: Historical Data, Nursing Documentation, Vital Signs Vital Signs: Last Vital Signs Temp 98.1 F 09/14/17 18:34 Pulse 110 H 09/14/17 18:34 Resp 20 09/14/17 18:34 BP 136/83 09/14/17 18:34 Pulse Ox 94 L 09/14/17 19:16 - Medical History PMH: Asthma Denies: Diabetes, Hepatitis, HIV, HTN, Chronic Kidney Disease, Seizures, Sexually Transmitted Disease Family History: States: No Known Family Hx - Social History Hx Tobacco Use: Yes Hx Alcohol Use: No Hx Substance Use: Yes - Immunization History Hx Tetanus Toxoid Vaccination: No Hx Influenza Vaccination: No Hx Pneumococcal Vaccination: No Review Of Systems Constitutional: Negative for: Fever, Chills ENT: Positive for: Nose Congestion. Negative for: Throat Pain Respiratory: Positive for: Wheezing, Other (Chest tightness) Gastrointestinal: Negative for: Nausea, Vomiting Physical Exam - Physical Exam Appears: Non-toxic, No Acute Distress Skin: Normal Color, Warm, Dry Head: Atraumatic, Normacephalic Eye(s): bilateral: Normal Inspection Oral Mucosa: Moist Neck: Normal, Supple Chest: Symmetrical, No Tenderness Cardiovascular: Rhythm Regular Respiratory: No Rales, No Rhonchi, Wheezing (Mild diffuse), Other (No respiratory distress) Gastrointestinal/Abdominal: Soft, No Tenderness Extremity: Normal ROM (x4) Neurological/Psych: Oriented x3, Normal Speech ED Course And Treatment - Laboratory Results Result Diagrams: 09/14/17 19:39 09/14/17 19:39 Lab Interpretation: Abnormal (WBC 18.9) O2 Sat by Pulse Oximetry: 94 (Room air) Pulse Ox Interpretation: Normal Progress Note: Blood work and urinalysis ordered. Albuterol nebulizer administered. Patient is medically cleared for detox admission. Reevaluation Time: 21:35 Reassessment Condition: Improved (after nebulizer) Disposition - Disposition Disposition: HOSPITALIZED Disposition Time: 21:35 Condition: STABLE - POA Present On Arrival: None - Clinical Impression Clinical Impression: Opiate dependence - Scribe Statement The provider has reviewed the documentation as recorded by the Scribdeangelo Pearson All medical record entries made by the Janeeibdeangelo were at my direction and personally dictated by me. I have reviewed the chart and agree that the record accurately reflects my personal performance of the history, physical exam, medical decision making, and the department course for this patient. I have also personally directed, reviewed, and agree with the discharge instructions and disposition.
[2017-09-14 19:43] LABS: BASO # 0.1 K/uL (0.0-0.2); BASO % 0.6 % (0.0-2.0); EOS # 0.7 K/uL (0.0-0.7); EOS % 3.8 % (0.0-4.0); HEMOGLOBIN 13.6 g/dL (12.0-18.0); LYMPH # 3.2 K/uL (1.0-4.3); LYMPH % 17.2 % (20.0-40.0); MEAN CORPUSCULAR HEMOGLOBIN 30.6 pg (27.0-31.0); MEAN CORPUSCULAR HGB CONC 33.5 g/dL (33.0-37.0); MEAN PLATELET VOLUME 7.4 fL (7.2-11.7); MONO # 0.6 K/uL (0.0-0.8); MONO % 3.3 % (0.0-10.0); NEUT # 14.2 K/uL (1.8-7.0); NEUT % 75.1 % (50.0-75.0); NRBC % 0.1 % (0.0-2.0); RBC 4.43 Mil/uL (4.40-5.90); WHITE BLOOD COUNT 18.9 K/uL (4.8-10.8)
[2017-09-14 19:46] LABS: MEAN CELL VOLUME 91.5 fL (80.0-94.0)
[2017-09-14 19:58] LABS: ALB/GLOB RATIO 1.8 (1.0-2.1); ALBUMIN 4.6 g/dL (3.5-5.0); ALT/SGPT 28 U/L (21-72); AST/SGOT 22 U/L (17-59); BLOOD UREA NITROGEN 18 mg/dL (9-20); CALCIUM 9.4 mg/dl (8.6-10.4); GFR AFRICAN-AMERICAN > 60; GFR NON-AFRICAN AMERICAN > 60
[2017-09-14 21:32] LABS: URINE BACTERIA RARE (<OCC); URINE BILIRUBIN NEGATIVE (NEGATIVE); URINE BLOOD NEGATIVE (NEGATIVE); URINE CLARITY Hazy (Clear); URINE COLOR Yellow (YELLOW); URINE GLUCOSE (UA) NORMAL (Normal); URINE LEUKOCYTE ESTERASE NEG Leu/uL (Negative); URINE PROTEIN 1+ mg/dL (NEGATIVE); URINE UROBILINOGEN NORMAL mg/dL (0.2-1.0)
[2017-09-14 21:43] LABS: BARBITURATES, UR NEGATIVE (NEGATIVE); BENZODIAZEPINES, UR NEGATIVE (NEGATIVE); PHENCYCLIDINE, UR NEGATIVE (NEGATIVE)
[2017-09-14 21:44] LABS: OPIATES, UR POSITIVE (NEGATIVE)
--- NOTE | 2017-09-14 21:53 | PCM.BM ---
<Betsy Powell - Last Filed: 09/14/17 21:52> Treatment Plan Problems - Problems identified on initial assessmt Potential for opiate withdrawal Date Initiated: 09/14/17 Time Initiated: 21:53 Assessment reference: NA Status: Active Treatment assets and liabiliti Patient Assests: ADL independent, negotiates basic needs, cognitively intact Patient Liabilities: substance abuse (OPIATES, THC) - Milieu Protocol Maintain good personal hygiene: daily Encourage regular showers, daily Remind patient to perform daily oral care, daily Assist patient to perform ADL's Conduct patient checks and document Observation sheet: Q15 minutes Maintain personal safety: every shift Educate patient to report safety concerns to staff, every shift Monitor environment for contraband/sharps Medication safety: Monitor for expected outcome, potential side effects: every shift, Assess barriers to learning: every shift, Assess readiness for medication education: every shift <aSrah Sanchez - Last Filed: 09/16/17 23:21> - Diagnosis (1) Opioid use disorder, severe, dependence Status: Acute Interventions: 09/16/17 23:21 * Assess 7x/week regarding severity of withdrawal * Educate regarding risks, benefits, side effects and alternatives of medications * Use Motivational Interviewing for abstinence * Use CBT for relapse prevention * Medication management for withdrawal symptoms * Encourage medication assisted treatment * <Jessica Beck - Last Filed: 09/18/17 10:50> Family Contact Family involvement: Famliy/SO not involved - Goals for Treatment Patient goals for treatment: Complete detox and transtion to IOP. Discharge/Continuing Care - Education Needs Education Needs: Patient Medication, Patient Diagnosis/Disease Process, Patient Coping Skills, Patient Anger Management skills, Patient Placement options, Patient Community resources - Discharge Discharge Criteria: No longer exhibiting s/s of withdrawal, Reduction of target symptoms Discharge to:: Home - Treatment Team Participation Patient/Family/SO Statement: 09/18/17 10:49 "I wanna go to [place] [facility]..." Discussed with Family/SO: No Was Patient/Family/SO present at Treatment Team Meeting: Yes
[2017-09-14] MEDS ORDERED: Albuterol HFA 90 mcg/actuation (8 g) INH PRN (22:42)
--- NOTE | 2017-09-15 09:58 | PCM.PSYCH ---
Initial Psychiatric Evaluation - Initial Psychiatric Evaluation Type of Admission: Voluntary Legal Status: Capacity Chief Complaint (in patient's own words): I came here to get help.' History of Present Illness and Precipitating Events: Patient is a 32 year old single HM, who came to the ED to get help in heroin detox. Patient stated that he's here for heroin detox as he is tired of being in addictions and wants to get out. Patient stated that he's been using heroin for about 15 years and wants detox now because he's tried and don't want to continue this type of life. Patient said he's using about 7-10 bags daily and his last use was 2 bags, yesterday. Patient reports of withdrawal symptoms including abdominal cramps, anxiety, headaches and sweating. Patient reports irritability but denies any feelings of hopelessness and helplessness. He denies any manic symptoms.He denies any auditory of visual hallucinations or any paranoia. He denies nay suicidal ideation or any homicidal , ideation. PMH: None reported Current Medications: Active Medications Generic Name Dose Route Start Last Admin Trade Name Freq PRN Reason Stop Dose Admin Albuterol 1 puff 09/14/17 22:42 Ventolin Hfa 90 Mcg/Actuation (8 G) INH RQ4 PRN sibilant musical ronchi Hydroxyzine HCl 25 mg 09/14/17 23:46 09/14/17 23:56 Atarax PO 25 mg Q6H PRN Administration Anxiety Trazodone HCl 50 mg 09/14/17 22:43 09/14/17 23:46 Desyrel PO 50 mg HS PRN Administration insomnia Past Psychiatric History - Past Psychiatric History Previous Treatment History: None Pertinent Medical Hx (Current Medical&Sleep Prob, Allergies): Allergies Allergy/AdvReac Type Severity Reaction Status Date / Time No Known Allergies Allergy Verified 09/14/17 18:34 Fluticasone/Salmeterol [Advair 250-50 Diskus] 1 puff IH DAILY 08/07/17 Tiotropium [place] Inhaler [Spiriva Inhalation Handihaler Device] 1 inhaler INH DAILY 08/07/17 Albuterol HFA [Ventolin HFA 90 mcg/actuation (8 g)] 1 puff IH QID PRN #1 inhaler 08/12/17 Montelukast Sodium [Singulair] 4 mg PO DAILY #30 ctb 08/12/17 Quetiapine Fumarate [Seroquel] 50 mg PO HS #30 tablet 08/12/17 predniSONE [Prednisone] 10 mg PO DAILY #20 tab 08/12/17 Review of Systems - Review of Systems All systems: reviewed and no additional remarkable complaints except - Psychiatric Psychiatric: Anxiety, Irritability. absent: Suicidal Ideation Mental Status Examination - Personal Presentation Personal Presentation: Looks stated age - Affect Affect: Constricted - Motor Activity Motor Activity: Calm - Reliability in Providing Information Reliability in Providing Information: Fair - Speech Speech: Organized - Mood Mood: Anxious - Formal Thought Process Formal Thought Process: No Impairment - Obsessions/Compulsions Obsessions: No Compulsions: No - Cognitive Functions Orientation: Person, Place, Situation, Time Sensorium: Alert Attention/Concentration: Attentive Abstract Thinking: [place] Estimate of Intelligence: Below average Judgement: Imparied, as evidence by: Poor judgement, Intact, as evidence by: Insight regarding need for hospitalization - Risk Risk: Withdrawal, Diminished functioning - Limitations Limitations: Living alone DSM 5 DX - DSM 5 DSM 5 Diagnosis: Opioid use disorder severe Opioid withdrawal - Recommended/Plan of Treatment Treatment Recommendations and Plan of Treatment: Opioid use disorder severe Opioid withdrawal COPD/Asthma -CBT -Psychotherapy -Supportive therapy, group therapy, individual therapy -Atarax 25 mg for anxiety -Trazodone 50 mg for insomnia -Methadone Taper -Gabapentin for augmentation -Continue Seroquel -As needed medications -All risks, benefits and alternatives of the meds discussed, and the pt agreed and understood. -Continue COPD/Asthma meds - Smoking Cessation Smoking Cessation Initiated: No
[2017-09-15] MEDS ORDERED: Aluminum Hydroxide/Magnesium Hydroxide Susp (30 mL) PO PRN (09:59)
[2017-09-15] MEDS ORDERED: Fluticasone-Salmeterol 250-50mcg Diskus IH SCH (10:00)
[2017-09-15] MEDS ORDERED: Albuterol HFA 90 mcg/actuation (8 g) IH PRN (10:00)
[2017-09-15] MEDS: Tiotropium 18 mcg Cap For Inhalation INH SCH (10:56)
[2017-09-15] MEDS: Fluticasone-Salmeterol 250-50mcg Diskus IH SCH (20:42)
[2017-09-16] MEDS: Fluticasone-Salmeterol 250-50mcg Diskus IH SCH ×2 (08:03→20:43)
[2017-09-16] MEDS: Tiotropium 18 mcg Cap For Inhalation INH SCH (08:03)
--- NOTE | 2017-09-16 14:47 | PCM.PYCHPN ---
Psychiatric Progress Note - Psychiatric Progress Note Patient seen today, length of contact: 17 min Patient Chief Complaint: "Not well" Problems Identified/Issues Discussed: The pt is seen, chart reviewed, case discussed with staff. The pt is compliant with medications and reports no side-effects. Symptoms are improving but needs more time to stabilize. Pt attends groups and activities. Support given, psycho-education provided. After care discussed. Medication Change: Yes (detox changes daily) Medical Record Reviewed: Yes Mental Status Examination - Cognitive Function Orientation: Person, Place, Situation, Time Attention: WNL Concentration: WNL Association: WNL Fund of Knowledge: WNL - Mood Mood: Anxious - Affect Affect: Constricted - Speech Speech: Appropriate - Formal Thought Process Formal Thought Process: No Impairment - Suicidal Ideation Suicidal Ideation: No - Homicidal Ideation Homicidal Ideation: No Goal/Treatment Plan - Goal/Treatment Plan Need for Continued Stay: Discharge may exacerbated symptoms, Severe functional impairment Progress Toward Problem(s) and Goals/Treatment Plan: Continue medications Support and psychoeducation daily Attend groups and activities daily After care planning by [facility]
[2017-09-17] MEDS: Fluticasone-Salmeterol 250-50mcg Diskus IH SCH ×2 (09:45→21:10)
[2017-09-17] MEDS: Tiotropium 18 mcg Cap For Inhalation INH SCH (09:45)
[2017-09-17 10:55] VITALS: RESP 18
--- NOTE | 2017-09-17 11:28 | PCM.PYCHPN ---
Psychiatric Progress Note - Psychiatric Progress Note Patient seen today, length of contact: 17 min Patient Chief Complaint: I feel better today Problems Identified/Issues Discussed: Patient was seen and evaluated at bedside. Chart reviewed and case discussed with staff. Patient is compliant with medications with no adverse effects noted. He states he slept well last night. He states he feels a little anxious intermittently. He denies feeling depressed, denies suicidal or homicidal thoughts. Denies auditory or visual hallucinations. Symptoms are improving, however patient needs more time to stabilize. He is attending groups and activities. Support given, psychoeducation provided. Medication Change: Yes (detox changes daily) Medical Record Reviewed: Yes Mental Status Examination - Cognitive Function Orientation: Person, Place, Situation, Time Attention: WNL Concentration: WNL Association: WNL Fund of Knowledge: WNL - Mood Mood: Anxious - Affect Affect: Constricted - Speech Speech: Appropriate - Formal Thought Process Formal Thought Process: No Impairment - Suicidal Ideation Suicidal Ideation: No - Homicidal Ideation Homicidal Ideation: No Goal/Treatment Plan - Goal/Treatment Plan Need for Continued Stay: Discharge may exacerbated symptoms, Severe functional impairment Progress Toward Problem(s) and Goals/Treatment Plan: Continue medications Methadone taper Support and psychoeducation daily Attend groups and activities Aftercare planning by ALEC MELENDEZ for abstinence CBT for relapse prevention Case discussed with Dr. Laura López, PGY1
[2017-09-18] MEDS: Tiotropium 18 mcg Cap For Inhalation INH SCH (08:11)
[2017-09-18] MEDS: Fluticasone-Salmeterol 250-50mcg Diskus IH SCH (08:11)
--- NOTE | 2017-09-18 08:44 | PCM.PYCHDC ---
Mental Status Examination - Mental Status Examination Orientation: Person Discharge Summary - Discharge Note Consultations:: List each consultation separately and include: 1. Reason for request. 2. Findings. 3. Follow-up Summary of Hospital Course include:: 1. Description of specific treatment plan utilized for patients during their course of treatmen. 2. Summarize the time- course for resolution of acute symptoms and/or regressed behaviors. 3. Describe issues identified and worked on during hospitalization. 4. Describe medication utilized. 5. Describe medical problems identified and treated. 6. Reassessment of suicide risk Summary of Hospital Course: He will attend [place] [facility]. - Diagnosis (1) Opioid use disorder, severe, dependence Current Visit: Yes Status: Acute - Final Diagnosis (DSM 5) Condition upon Discharge: STABLE Disposition: HOME/ ROUTINE Follow-up Treatment Plan: Continue medications Support and psychoeducation daily Attend groups and activities daily After care planning by ALEC Prescriptions/Medication Reconciliation: Albuterol HFA [Ventolin HFA 90 mcg/actuation (8 g)] 1 puff INH RQ4 PRN #1 inhaler PRN Reason: sibilant musical ronchi Fluticasone/Salmeterol [Advair 250-50 Diskus] 1 puff IH DAILY #1 blst.w.dev Montelukast Sodium [Singulair] 4 mg PO DAILY #30 ctb predniSONE [predniSONE Tab] 10 mg PO DAILY #30 tab Quetiapine Fumarate [Seroquel] 50 mg PO HS #30 tablet Tiotropium [Spiriva] 18 mcg INH RQ24 #1 cap
[2017-09-18 10:03] VITALS: BP 113/69; PULSE 96; TEMP 98.4; O2SAT 98
== END 2017-09-18 11:00 | disposition home or self-care (01) | DRG 744 ==
LOC: C.ER 18:25 → C.7D 21:37
PROVIDERS: ADMIT Psychiatry & Neurology Psychiatry; ATTEND Psychiatry & Neurology Psychiatry
PROC: HZ52ZZZ Individual Psychotherapy for Substance Abuse Treatment, Cognitive-Behavioral (ICD-10-PCS; principal; 2017-09-14)
PROC: HZ2ZZZZ Detoxification Services for Substance Abuse Treatment (ICD-10-PCS; 2017-09-14)
PROC: HZ59ZZZ Individual Psychotherapy for Substance Abuse Treatment, Supportive (ICD-10-PCS; 2017-09-14)
PROC: HZ56ZZZ Individual Psychotherapy for Substance Abuse Treatment, Psychoeducation (ICD-10-PCS; 2017-09-14)
PROC: HZ42ZZZ Group Counseling for Substance Abuse Treatment, Cognitive-Behavioral (ICD-10-PCS; 2017-09-14)
PROC: HZ46ZZZ Group Counseling for Substance Abuse Treatment, Psychoeducation (ICD-10-PCS; 2017-09-14)
PROC: GZHZZZZ Group Psychotherapy (ICD-10-PCS; 2017-09-14)
PROC: GZ58ZZZ Individual Psychotherapy, Cognitive-Behavioral (ICD-10-PCS; 2017-09-14)
PROC: GZ56ZZZ Individual Psychotherapy, Supportive (ICD-10-PCS; 2017-09-14)
DX: F11.23 Opioid dependence with withdrawal (principal); J44.9 Chronic obstructive pulmonary disease, unspecified; F41.9 Anxiety disorder, unspecified; Z87.891 Personal history of nicotine dependence; G47.00 Insomnia, unspecified

== ENCOUNTER 2017-09-21 08:21 | Emergency (ER) | payer MEDICAID ==
[2017-09-21 08:34] VITALS: BP 129/85; PULSE 100; RESP 20; TEMP 98.3; O2SAT 98
[2017-09-21] MEDS ORDERED: Sodium Chloride 0.9% 1,000 ML IV ONE (09:10)
[2017-09-21] MEDS ORDERED: Sodium Chloride 0.9% 1,000 ML ONE (09:42)
[2017-09-21 09:43] LABS: BASO # 0.1 K/uL (0.0-0.2); BASO % 0.7 % (0.0-2.0); HEMOGLOBIN 13.2 g/dL (12.0-18.0); LYMPH # 1.8 K/uL (1.0-4.3); LYMPH % 22.3 % (20.0-40.0); MEAN CORPUSCULAR HEMOGLOBIN 31.3 pg (27.0-31.0); MEAN CORPUSCULAR HGB CONC 33.7 g/dL (33.0-37.0); MEAN PLATELET VOLUME 7.7 fL (7.2-11.7); MONO # 0.4 K/uL (0.0-0.8); MONO % 4.4 % (0.0-10.0); NEUT # 4.9 K/uL (1.8-7.0); NEUT % 60.6 % (50.0-75.0); RBC 4.23 Mil/uL (4.40-5.90); RED CELL DISTRIBUTION WIDTH 13.2 % (11.5-14.5); WHITE BLOOD COUNT 8.1 K/uL (4.8-10.8)
[2017-09-21 09:56] LABS: BLOOD UREA NITROGEN 15 mg/dL (9-20); GFR NON-AFRICAN AMERICAN > 60; LIPASE 122 U/L (23-300)
[2017-09-21 10:28] LABS: SQUAMOUS EPITHIAL < 1 /hpf (0-5); URINE BILIRUBIN NEGATIVE (NEGATIVE); URINE BLOOD NEGATIVE (NEGATIVE); URINE CLARITY Clear (Clear); URINE COLOR Yellow (YELLOW); URINE GLUCOSE (UA) NORMAL (Normal); URINE LEUKOCYTE ESTERASE NEG Leu/uL (Negative); URINE PROTEIN NEGATIVE (NEGATIVE)
[2017-09-21 10:30] LABS: BARBITURATES, UR NEGATIVE (NEGATIVE); BENZODIAZEPINES, UR NEGATIVE (NEGATIVE); PHENCYCLIDINE, UR NEGATIVE (NEGATIVE)
[2017-09-21 10:38] LABS: OPIATES, UR POSITIVE (NEGATIVE)
--- NOTE | 2017-09-21 11:25 | C.PDOC ---
History Of Present Illness 32 year old male, with past medical history of asthma, presents to ED for evaluation of vomiting, abdominal cramping, body aches, congestion, sore throat , and chills. He reports about 10 episode of vomiting since yesterday, states he vomits after eating. Denies diarrhea, fever, headache, or neck pain. Time Seen by Provider: 09/21/17 08:30 Chief Complaint (Nursing): GI Problem History Per: Patient History/Exam Limitations: no limitations Onset/Duration Of Symptoms: Days Current Symptoms Are (Timing): Still Present Location Of Pain/Discomfort: Diffuse Radiation Of Pain To:: None Quality Of Discomfort: Cramping Associated Symptoms: Chills, Nausea, Vomiting Alleviating Factors: None Recent travel outside of the [place]: No Additional History Per: Patient Past Medical History Reviewed: Historical Data, Nursing Documentation, Vital Signs Vital Signs: Last Vital Signs Temp 98.3 F 09/21/17 08:31 Pulse 100 H 09/21/17 08:31 Resp 20 09/21/17 08:31 BP 129/85 09/21/17 08:31 Pulse Ox 98 09/21/17 11:31 - Medical History PMH: Asthma Denies: Diabetes, Hepatitis, HIV, HTN, Chronic Kidney Disease, Seizures, Sexually Transmitted Disease - [facility] Procedures DETOXIFICATION SERVICES FOR SUBSTANCE ABUSE TREATMENT (09/14/17) GROUP VOTATOR MACHINE OPERATOR FOR SUBSTANCE ABUSE TREATMENT, PSYCHOEDUCATION (09/14/17) GROUP VOTATOR MACHINE OPERATOR FOR SUBSTANCE ABUSE, COGNITIVE BEHAVIORAL (09/14/17) GROUP PSYCHOTHERAPY (09/14/17) INDIV PSYCHOTHERAPY FOR SUBSTANCE ABUSE TREATMENT, SUPPORT (09/14/17) INDIV PSYCHOTHERAPY FOR SUBSTANCE ABUSE, COGNITIV BEHAVIORAL (09/14/17) INDIV PSYCHOTHERAPY FOR SUBSTANCE ABUSE, PSYCHOEDUCATION (09/14/17) INDIVIDUAL PSYCHOTHERAPY, COGNITIVE-BEHAVIORAL (09/14/17) INDIVIDUAL PSYCHOTHERAPY, SUPPORTIVE (09/14/17) Family History: States: Unknown Family Hx - Social History Hx Tobacco Use: Yes Hx Alcohol Use: No Hx Substance Use: Yes - Immunization History Hx Tetanus Toxoid Vaccination: No Hx Influenza Vaccination: No Hx Pneumococcal Vaccination: No Review Of Systems Except As Marked, All Systems Reviewed And Found Negative. Constitutional: Positive for: Chills, Other (body aches) ENT: Positive for: Nose Discharge, Nose Congestion, Throat Pain Cardiovascular: Negative for: Chest Pain Respiratory: Negative for: Shortness of Breath Gastrointestinal: Positive for: Nausea, Vomiting, Abdominal Pain. Negative for : Diarrhea, Hematemesis Genitourinary: Negative for: Dysuria, Frequency, Hematuria Musculoskeletal: Negative for: Back Pain Physical Exam - Physical Exam Appears: Non-toxic, No Acute Distress Skin: Normal Color, Warm, Dry Head: Atraumatic, Normacephalic Eye(s): bilateral: Normal Inspection Nose: Other (nasal congestion) Oral Mucosa: Moist Tongue: Normal Appearing Lips: Normal Appearing Throat: Normal, No Erythema, No Exudate Neck: Normal ROM, Supple Chest: Symmetrical Cardiovascular: Rhythm Regular, No Murmur Respiratory: Normal Breath Sounds, No Rales, No Rhonchi, No Wheezing Gastrointestinal/Abdominal: Soft, No Tenderness Extremity: Normal ROM, No Pedal Edema Neurological/Psych: Oriented x3, Normal Speech ED Course And Treatment - Laboratory Results Result Diagrams: 09/21/17 09:39 09/21/17 09:39 O2 Sat by Pulse Oximetry: 98 (RA) Pulse Ox Interpretation: Normal Medical Decision Making Medical Decision Making: Plan: Blood work Urinalysis Influenza AB CXR Motrin, Zofran, Tylenol 11:15 Pt eloped from ER. Urine was positive for opiates. Presentation consistent with opiates withdrawal but unable to verify. Disposition - Disposition Disposition: ELOPEMENT - ER ONLY Disposition Time: 11:30 Condition: UNKNOWN Forms: [facility] ([place] Citizen) - Clinical Impression Clinical Impression: Opiate dependence, Eloped from emergency department - Scribe Statement The provider has reviewed the documentation as recorded by the Scribe KP All medical record entries made by the Scribe were at my direction and personally dictated by me. I have reviewed the chart and agree that the record accurately reflects my personal performance of the history, physical exam, medical decision making, and the department course for this patient. I have also personally directed, reviewed, and agree with the discharge instructions and disposition.
--- NOTE | 2017-09-21 21:21 | RAD ---
Date of service: 09/21/2017 PROCEDURE: CHEST RADIOGRAPH, 1 VIEW HISTORY: abd pain COMPARISON: Comparison is made with 08/07/2017 FINDINGS: LUNGS: No evidence of new infiltrate or consolidation in the lungs. PLEURA: No pneumothorax or pleural fluid seen. CARDIOVASCULAR: Normal. OSSEOUS STRUCTURES: No significant abnormalities. VISUALIZED UPPER ABDOMEN: Normal. OTHER FINDINGS: None. IMPRESSION: No active disease.
== END 2017-09-21 11:38 | disposition left against medical advice (07) ==
LOC: C.ER 08:21
DX: F11.20 Opioid dependence, uncomplicated (principal); Z72.0 Tobacco use

== ENCOUNTER 2017-09-27 00:05 | Emergency (ER) | payer MEDICAID ==
[2017-09-27 00:13] VITALS: O2SAT 98
[2017-09-27] MEDS ORDERED: Sodium Chloride 0.9% 1,000 ML IV ONE (00:21)
[2017-09-27] MEDS ORDERED: Albuterol-Ipratrop 3 mg / 0.5 (3 ml) UD INH STA ×3 (00:22→00:24)
[2017-09-27] MEDS ORDERED: Sodium Chloride 0.9% 1,000 ML ONE (00:28)
[2017-09-27 00:31] LABS: BASO # 0.1 K/uL (0.0-0.2); BASO % 0.3 % (0.0-2.0); EOS # 0.5 K/uL (0.0-0.7); EOS % 2.8 % (0.0-4.0); HEMOGLOBIN 13.8 g/dL (12.0-18.0); LYMPH # 2.4 K/uL (1.0-4.3); LYMPH % 14.6 % (20.0-40.0); MEAN CELL VOLUME 92.4 fL (80.0-94.0); MEAN CORPUSCULAR HGB CONC 33.6 g/dL (33.0-37.0); MEAN PLATELET VOLUME 8.5 fL (7.2-11.7); MONO # 0.9 K/uL (0.0-0.8); MONO % 5.7 % (0.0-10.0); NEUT # 12.7 K/uL (1.8-7.0); NEUT % 76.6 % (50.0-75.0); RBC 4.44 Mil/uL (4.40-5.90); RED CELL DISTRIBUTION WIDTH 13.2 % (11.5-14.5); WHITE BLOOD COUNT 16.5 K/uL (4.8-10.8)
--- NOTE | 2017-09-27 00:32 | C.PDOC ---
History Of Present Illness 32 year old male is brought to the ED for evaluation of SOB. 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 Patient states using his inhaler twice at home. Patient denies fever, chills, CP, palpitations, weakness , numbness. Chief Complaint (Nursing): Respiratory Distress History Per: Patient History/Exam Limitations: no limitations Onset/Duration Of Symptoms: Hrs Current Symptoms Are (Timing): Still Present Initiating Event: Upper Respiratory Illness Quality: Tightness Current Respiratory Medications: See Home Med List Recent travel outside of the [place]: No Additional History Per: Patient Past Medical History Reviewed: Historical Data, Nursing Documentation, Vital Signs Vital Signs: Last Vital Signs Temp 98.8 F 09/27/17 00:09 Pulse 100 H 09/27/17 00:09 Resp 20 09/27/17 00:19 BP 129/79 09/27/17 00:09 Pulse Ox 98 09/27/17 01:27 - Medical History PMH: Anxiety, Asthma Denies: Diabetes, Hepatitis, HIV, HTN, Chronic Kidney Disease, Seizures, Sexually Transmitted Disease Surgical History: No Surg Hx - [facility] Procedures DETOXIFICATION SERVICES FOR SUBSTANCE ABUSE TREATMENT (09/14/17) GROUP HOUSING RELOCATION FOR SUBSTANCE ABUSE TREATMENT, PSYCHOEDUCATION (09/14/17) GROUP HOUSING RELOCATION FOR SUBSTANCE ABUSE, COGNITIVE BEHAVIORAL (09/14/17) GROUP PSYCHOTHERAPY (09/14/17) INDIV PSYCHOTHERAPY FOR SUBSTANCE ABUSE TREATMENT, SUPPORT (09/14/17) INDIV PSYCHOTHERAPY FOR SUBSTANCE ABUSE, COGNITIV BEHAVIORAL (09/14/17) INDIV PSYCHOTHERAPY FOR SUBSTANCE ABUSE, PSYCHOEDUCATION (09/14/17) INDIVIDUAL PSYCHOTHERAPY, COGNITIVE-BEHAVIORAL (09/14/17) INDIVIDUAL PSYCHOTHERAPY, SUPPORTIVE (09/14/17) Family History: States: Unknown Family Hx - Social History Hx Tobacco Use: Yes Hx Alcohol Use: No Hx Substance Use: Yes - Immunization History Hx Tetanus Toxoid Vaccination: No Hx Influenza Vaccination: No Hx Pneumococcal Vaccination: No Review Of Systems Constitutional: Negative for: Fever, Chills Cardiovascular: Negative for: Chest Pain, Palpitations Respiratory: Positive for: Shortness of Breath. Negative for: Cough Gastrointestinal: Negative for: Nausea, Vomiting, Abdominal Pain Skin: Negative for: Rash Neurological: Negative for: Weakness, Numbness Physical Exam - Physical Exam Appears: Non-toxic, In Acute Distress Skin: Normal Color, Warm, Dry Head: Atraumatic, Normacephalic Eye(s): bilateral: Normal Inspection Oral Mucosa: Moist Neck: Normal ROM, Supple Chest: Symmetrical Cardiovascular: Rhythm Regular Respiratory: No Rales, No Rhonchi, Wheezing (expiratory ) Gastrointestinal/Abdominal: Soft, No Tenderness, No Guarding, No Rebound Extremity: Normal ROM, No Tenderness, No Swelling Neurological/Psych: Oriented x3, Normal Speech Gait: Steady ED Course And Treatment - Laboratory Results Result Diagrams: 09/27/17 00:27 09/27/17 00:27 ECG: Interpreted By Me, Viewed By Me ECG Rhythm: Sinus Tachycardia ECG Interpretation: No Acute Changes Interpretation Of ECG: Sinus tachycardia, J- pt. elevation -early [id number], no receprocal changes. Rate From EC O2 Sat by Pulse Oximetry: 98 (ON RA) Pulse Ox Interpretation: Normal - Radiology CXR: Interpreted by Me, Viewed By Me CXR Interpretation: Yes: No Acute Disease. No: Infiltrates (normal chest film.) Medical Decision Making Medical Decision Making: Plan: * EKG * Labs * CXR * Duoneb x3 * Solumedrol 125 mg IVP * IV fluids Disposition Counseled Patient/Family Regarding: Diagnosis - Disposition Referrals: at [facility] [Outside] Disposition: HOME/ ROUTINE Disposition Time: 01:40 Condition: IMPROVED Prescriptions: Albuterol/Ipratropium [Combivent Respimat] 1 puff IH Q6 #1 inhaler Methylprednisolone [Medrol Dose Pack (21 tabs)] 4 mg PO DAILY #21 mg Instructions: Asthma in Adults Forms: [facility] (Sinhala), Gen Discharge Inst Yi Print Language: AUSTRIAN - POA Present On Arrival: None - Clinical Impression Clinical Impression: Exacerbation of asthma - Scribe Statement The provider has reviewed the documentation as recorded by the Scribe Mathieu Seymour All medical record entries made by the Scribe were at my direction and personally dictated by me. I have reviewed the chart and agree that the record accurately reflects my personal performance of the history, physical exam, medical decision making, and the department course for this patient. I have also personally directed, reviewed, and agree with the discharge instructions and disposition.
[2017-09-27] MEDS ORDERED: Albuterol-Ipratrop 3 mg / 0.5 (3 ml) UD ONE (00:51)
[2017-09-27 01:01] LABS: ALB/GLOB RATIO 1.9 (1.0-2.1); ALBUMIN 4.9 g/dL (3.5-5.0); ALT/SGPT 29 U/L (21-72); AST/SGOT 15 U/L (17-59); BLOOD UREA NITROGEN 21 mg/dL (9-20); CALCIUM 9.8 mg/dl (8.6-10.4); GFR AFRICAN-AMERICAN > 60; GFR NON-AFRICAN AMERICAN > 60
[2017-09-27 01:46] VITALS: BP 116/75; PULSE 89; RESP 18; TEMP 98.5
--- NOTE | 2017-09-27 08:57 | RAD ---
HISTORY: COMPARISON: 09/21/2017 TECHNIQUE: Chest PA and lateral FINDINGS: LINES AND TUBES: None. LUNG AND PLEURA: The lungs are hyperinflated and there is peribronchial thickening with chronic changes in both lungs. There are fibrotic changes in both upper lobes. No focal consolidation. No pleural effusion or pneumothorax. HEART AND MEDIASTINUM: The heart is not enlarged. The hilar and mediastinal contours are within normal limits. SKELETAL STRUCTURES: The bony structures are within normal limits for the patient's age. VISUALIZED UPPER ABDOMEN: Normal. OTHER FINDINGS: None. IMPRESSION: No active pulmonary disease. COPD.
--- NOTE | 2017-09-30 08:10 | CARD ---
APPROVED REPORT Date of service: 09/27/2017 EKG Measurement Heart [id number] NM [id number] <Conclusion> Sinus tachycardia Possible Left atrial enlargement Early repolarization Borderline ECG
== END 2017-09-27 02:12 | disposition home or self-care (01) ==
LOC: C.ER 00:05
DX: J45.901 Unspecified asthma with (acute) exacerbation (principal); F17.210 Nicotine dependence, cigarettes, uncomplicated
CPT/HCPCS: 71046; 80053; 85025; 93005; 94640; 96361; 96374; 99284; J2930; J7030